=== PATIENT | male | born 1955 | race Caucasian/White ===

== ENCOUNTER 2018-10-17 18:47 | Inpatient (IN) | payer OTHER ==
[2018-10-17] MEDS: SOD CHLORIDE 0.9% 1,000 ML IV (20:00)
[2018-10-17 21:08] LABS: ADD MAN DIFF? NO
[2018-10-17 21:09] LABS: WHITE BLOOD COUNT 9.7 10^3/ul (4.8-10.8)
[2018-10-17 21:09] LABS: ABNORMAL IP MESSAGE 1; BASOPHILS % 0.1 % (0.0-2.0); HEMATOCRIT 34.8 % (42.0-52.0); HEMOGLOBIN 11.7 g/dl (14.0-18.0); LYMPHOCYTES # 0.7 10^3/ul (0.8-2.9); LYMPHOCYTES % 7.3 % (15.0-51.0); MEAN CORPUSCULAR HEMOGLOBIN 34.3 pg (29.0-33.0); MEAN CORPUSCULAR HGB CONC 33.6 g/dl (32.0-37.0); MEAN CORPUSCULAR VOLUME 102.1 fl (82.0-101.0); MEAN PLATELET VOLUME 9.8 fl (7.4-10.4); MONOCYTE # 1.4 10^3/ul (0.3-0.9); MONOCYTES % 14.1 % (0.0-11.0); NEUTROPHIL # 7.6 10^3/ul (1.6-7.5); NEUTROPHILS % 78.2 % (39.0-77.0); PLATELET COUNT 75 10^3/UL (140-415); POSITIVE DIFF @See below; RED BLOOD COUNT 3.41 10^6/ul (4.70-6.10); RED CELL DISTRIBUTION WIDTH 11.9 % (11.5-14.5)
[2018-10-17 21:32] LABS: ALANINE AMINOTRANSFERASE 13 IU/L (13-69); ALBUMIN 4.3 g/dl (3.3-4.9); ALBUMIN/GLOBULIN RATIO 1.16; ALKALINE PHOSPHATASE 60 IU/L (42-121); ANION GAP 13 (5-13); ASPARTATE AMINO TRANSFERASE 29 IU/L (15-46); BILIRUBIN,INDIRECT 0.4 mg/dl (0-1.1); BILIRUBIN,TOTAL 0.4 mg/dl (0.2-1.3); BLOOD UREA NITROGEN 25 mg/dl (7-20); CALCIUM 9.8 mg/dl (8.4-10.2); CARBON DIOXIDE 25 mmol/L (21-31); CHLORIDE 102 mmol/L (97-110); CREATININE 1.09 mg/dl (0.61-1.24); Estimated GFR > 60 mL/min (>60); GLUCOSE 162 mg/dl (70-220); POTASSIUM 4.5 mmol/L (3.5-5.1); SODIUM 140 mmol/L (135-144)
[2018-10-17 21:42] LABS: AMPHETAMINE/METHAMPHETAMINE Negative (NEGATIVE); BARBITURATES Negative (NEGATIVE); BENZODIAZEPINES Negative (NEGATIVE); CANNABINOIDS Negative (NEGATIVE); COCAINE Negative (NEGATIVE); OPIATES Negative (NEGATIVE)
[2018-10-17] MEDS: ONDANSETRON 4 MG INJ IV (22:02)
[2018-10-17] MEDS: morphine 4 MG/ML VIAL IV (22:03)
[2018-10-17] MEDS: HEPARIN 5,000 UNIT/1 ML VIAL SC (22:30)
[2018-10-17] MEDS ORDERED: ACETAMINOPHEN 325 MG TAB PO (22:30)
[2018-10-17] MEDS ORDERED: NACL 0.9% 3 ML SYG IV (22:30)
[2018-10-17] MEDS ORDERED: DOCUSATE SODIUM 100 MG CAP PO (22:30)
[2018-10-17 23:46] LABS: INR 1.07; PT RATIO 1.1
[2018-10-17 23:47] LABS: PARTIAL THROMBOPLASTIN TIME 27.9 Sec (23.0-35.0)
[2018-10-17 23:54] LABS: CREATINE KINASE 73 IU/L (23-200)
[2018-10-18 00:07] LABS: CK INDEX 1.7; CK-MB 1.22 ng/ml (0.0-2.4); TROPONIN-I < 0.012 ng/ml (0.000-0.120)
[2018-10-18 04:58] LABS: ADD MAN DIFF? NO
[2018-10-18 05:07] LABS: WHITE BLOOD COUNT 8.5 10^3/ul (4.8-10.8)
[2018-10-18 05:07] LABS: ABNORMAL IP MESSAGE 1; BASOPHILS % 0.1 % (0.0-2.0); HEMATOCRIT 35.3 % (42.0-52.0); HEMOGLOBIN 11.8 g/dl (14.0-18.0); LYMPHOCYTES # 0.9 10^3/ul (0.8-2.9); LYMPHOCYTES % 10.3 % (15.0-51.0); MEAN CORPUSCULAR HEMOGLOBIN 34.1 pg (29.0-33.0); MEAN CORPUSCULAR HGB CONC 33.4 g/dl (32.0-37.0); MEAN PLATELET VOLUME 10.4 fl (7.4-10.4); MONOCYTE # 1.8 10^3/ul (0.3-0.9); MONOCYTES % 20.9 % (0.0-11.0); NEUTROPHIL # 5.8 10^3/ul (1.6-7.5); NEUTROPHILS % 68.3 % (39.0-77.0); PLATELET COUNT 79 10^3/UL (140-415); POSITIVE DIFF @See below; RED BLOOD COUNT 3.46 10^6/ul (4.70-6.10); RED CELL DISTRIBUTION WIDTH 11.9 % (11.5-14.5)
[2018-10-18 05:20] LABS: CREATINE KINASE 67 IU/L (23-200)
[2018-10-18 05:29] LABS: ALANINE AMINOTRANSFERASE 25 IU/L (13-69); ALBUMIN 4.2 g/dl (3.3-4.9); ALKALINE PHOSPHATASE 51 IU/L (42-121); ANION GAP 15 (5-13); ASPARTATE AMINO TRANSFERASE 26 IU/L (15-46); BILIRUBIN,INDIRECT 0.8 mg/dl (0-1.1); BILIRUBIN,TOTAL 0.8 mg/dl (0.2-1.3); BLOOD UREA NITROGEN 23 mg/dl (7-20); CALCIUM 9.3 mg/dl (8.4-10.2); CARBON DIOXIDE 27 mmol/L (21-31); CHLORIDE 100 mmol/L (97-110); CREATININE 0.96 mg/dl (0.61-1.24); Estimated GFR > 60 mL/min (>60); GLUCOSE 124 mg/dl (70-220); MAGNESIUM 1.6 mg/dl (1.7-2.5); POTASSIUM 4.6 mmol/L (3.5-5.1); SODIUM 142 mmol/L (135-144); TOTAL PROTEIN 7.7 g/dl (6.1-8.1)
[2018-10-18 05:30] LABS: IRON 73 ug/dl (35-150)
[2018-10-18 05:33] LABS: CK INDEX 1.6; CK-MB 1.06 ng/ml (0.0-2.4); TROPONIN-I < 0.012 ng/ml (0.000-0.120)
[2018-10-18] MEDS: morphine 4 MG/ML VIAL IV ×2 (05:38→09:26)
[2018-10-18] MEDS: SOD CHLORIDE 0.9% 1,000 ML IV ×3 (05:38→20:00)
[2018-10-18 05:39] LABS: % IRON SATURATION 25 % SAT (22-52); TOTAL IRON BINDING CAPACITY 287 ug/dl (241-421)
[2018-10-18 05:55] LABS: HEPATITIS B SURFACE ANTIGEN NEGATIVE (NEGATIVE)
[2018-10-18 06:11] LABS: HEPATITIS B SURFACE ANTIBODY NEGATIVE (NEGATIVE)
[2018-10-18 06:12] LABS: HEPATITIS C VIRAL ANTIBODY NEGATIVE (NEGATIVE); HIV 1&2 ANTIBODY NEGATIVE (NEGATIVE)
[2018-10-18 06:30] LABS: FOLATE 9.7 ng/ml (2.8-20.0)
[2018-10-18 06:36] LABS: PHENYTOIN (DILANTIN) < 3.0 ug/ml (10.0-20.0)
[2018-10-18 06:43] LABS: HEMOGLOBIN A1C 5.2 % (0-5.9)
[2018-10-18] MEDS ORDERED: ROCURONIUM 50 MG INJ ×2 (07:00→16:25)
[2018-10-18] MEDS ORDERED: CEFAZOLIN 1 GM INJ (07:00)
[2018-10-18 10:53] LABS: ANTIBODY IDENTIFICATION 1 1
[2018-10-18] MEDS: MAGNESIUM SULFATE 2 GM/50 ML 50 ML IVPB (12:16)
[2018-10-18] MEDS: CEFAZOLIN 2 GM/50 ML (PMX) 50 ML IVPB ×2 (12:50→19:04)
[2018-10-18] MEDS ORDERED: ALBUTEROL 0.083% (NEB) 2.5 MG/3 ML AMP HHN (13:00)
[2018-10-18] MEDS ORDERED: DIPHENHYDRAMINE 50 MG INJ IV ×2 (13:00→18:30)
[2018-10-18] MEDS ORDERED: HYDROmorphONE 1 MG/5 ML IV SYRINGE IV ×3 (13:00→19:30)
[2018-10-18] MEDS ORDERED: ONDANSETRON 4 MG INJ IV (13:00)
[2018-10-18] MEDS ORDERED: METOCLOPRAMIDE 10 MG INJ IV (13:00)
[2018-10-18] MEDS ORDERED: FENTAnyl 50 MCG/ML VIAL IV ×2 (13:00)
[2018-10-18] MEDS ORDERED: MEPERIDINE 25 MG INJ IV (13:00)
[2018-10-18] MEDS ORDERED: FENTAnyl 50 MCG/ML VIAL (13:01)
[2018-10-18] MEDS ORDERED: morphine SULFATE/PF (10 MG/10 ML) INJ (13:02)
[2018-10-18] MEDS ORDERED: MIDAZOLAM 1 MG/ML 2 ML INJ (13:02)
[2018-10-18] MEDS: VANCOMYCIN HCL 1.5 GM in SOD CHLORIDE 0.9% 250 ML IVPB (13:30)
[2018-10-18] MEDS ORDERED: PHENYLephrine (100 MCG/ML) 5ML SYG (13:58)
[2018-10-18] MEDS: TRANEXAMIC ACID 1,000 MG in DEXTROSE 5% 100 ML IV ×3 (15:10→18:00)
[2018-10-18] MEDS ORDERED: LIDOCAINE 100 MG SYRINGE (16:25)
[2018-10-18] MEDS ORDERED: PROPOFOL 20 ML (16:25)
[2018-10-18] MEDS ORDERED: SUCCINYLCHOLINE CHLORIDE 100 MG/5 ML SYG IV (16:25)
[2018-10-18] MEDS ORDERED: NA PHOSPHATE/BIPHOS 133 ML ENEMA PR (18:30)
[2018-10-18] MEDS ORDERED: SENNA/DOCUSATE NA (8.6MG/50MG) TAB PO (18:30)
[2018-10-18] MEDS ORDERED: NACL 0.9% 3 ML SYG IV (18:30)
[2018-10-18] MEDS ORDERED: ACETAMINOPHEN 1000MG/100ML IV 100 ML IVPB (18:30)
[2018-10-18] MEDS ORDERED: NALOXONE (0.4 MG/ML) INJ IV (18:30)
[2018-10-18] MEDS ORDERED: BISACODYL 10 MG SUPP PR (18:30)
[2018-10-18] MEDS ORDERED: MAGNESIUM HYDROXIDE 30ML CUP PO (18:30)
[2018-10-18] MEDS ORDERED: oxyCODONE 5 MG TAB PO ×2 (18:30)
[2018-10-18] MEDS: HYDROmorphONE 1 MG/ML SYG IV (18:59)
[2018-10-18] MEDS: DOCUSATE SODIUM 100 MG CAP PO (19:06)
[2018-10-18] MEDS: HYDROmorphONE 1 MG/5 ML IV SYRINGE IV ×2 (19:18→19:27)
[2018-10-18] MEDS: ACETAMINOPHEN 500 MG TAB PO (20:00)
[2018-10-18] MEDS: GABAPENTIN 300 MG CAP PO (21:00)
[2018-10-18] MEDS: LACTATED RINGER'S 1,000 ML IV (22:34)
[2018-10-19] MEDS: HYDROmorphONE 1 MG/ML SYG IV ×4 (00:04→12:23)
[2018-10-19] MEDS: SOD CHLORIDE 0.9% 1,000 ML IV ×3 (02:00→21:43)
[2018-10-19] MEDS: CEFAZOLIN 2 GM/50 ML (PMX) 50 ML IVPB ×2 (02:40→09:28)
[2018-10-19] MEDS: PANTOPRAZOLE (EC) 40 MG TAB PO (05:06)
[2018-10-19] MEDS: VANCOMYCIN 1 GM (PMX) 250 ML IVPB ×2 (05:07→17:19)
[2018-10-19] MEDS: ACETAMINOPHEN 500 MG TAB PO ×3 (05:07→20:45)
[2018-10-19 05:18] LABS: ADD MAN DIFF? NO
[2018-10-19 05:28] LABS: ABNORMAL IP MESSAGE 1; HEMATOCRIT 29.6 % (42.0-52.0); HEMOGLOBIN 9.7 g/dl (14.0-18.0); LYMPHOCYTES # 0.4 10^3/ul (0.8-2.9); LYMPHOCYTES % 3.6 % (15.0-51.0); MEAN CORPUSCULAR HEMOGLOBIN 34.9 pg (29.0-33.0); MEAN CORPUSCULAR HGB CONC 32.8 g/dl (32.0-37.0); MEAN CORPUSCULAR VOLUME 106.5 fl (82.0-101.0); MEAN PLATELET VOLUME 10.6 fl (7.4-10.4); MONOCYTE # 1.7 10^3/ul (0.3-0.9); MONOCYTES % 17.4 % (0.0-11.0); NEUTROPHIL # 7.7 10^3/ul (1.6-7.5); NEUTROPHILS % 78.6 % (39.0-77.0); PLATELET COUNT 86 10^3/UL (140-415); POSITIVE DIFF @See below; RED BLOOD COUNT 2.78 10^6/ul (4.70-6.10); RED CELL DISTRIBUTION WIDTH 12.3 % (11.5-14.5)
[2018-10-19 05:28] LABS: WHITE BLOOD COUNT 9.8 10^3/ul (4.8-10.8)
[2018-10-19 05:43] LABS: INR 1.19; PROTIME 15.2 Sec (11.9-14.9); PT RATIO 1.2
[2018-10-19 05:45] LABS: ALANINE AMINOTRANSFERASE 13 IU/L (13-69); ALBUMIN 3.4 g/dl (3.3-4.9); ALBUMIN/GLOBULIN RATIO 1.03; ALKALINE PHOSPHATASE 44 IU/L (42-121); ANION GAP 15 (5-13); ASPARTATE AMINO TRANSFERASE 27 IU/L (15-46); BILIRUBIN,INDIRECT 0.4 mg/dl (0-1.1); BILIRUBIN,TOTAL 0.4 mg/dl (0.2-1.3); BLOOD UREA NITROGEN 23 mg/dl (7-20); CALCIUM 8.6 mg/dl (8.4-10.2); CARBON DIOXIDE 25 mmol/L (21-31); CHLORIDE 102 mmol/L (97-110); CREATININE 1.81 mg/dl (0.61-1.24); Estimated GFR 38 mL/min (>60); GLUCOSE 151 mg/dl (70-220); POTASSIUM 5.1 mmol/L (3.5-5.1); SODIUM 142 mmol/L (135-144); TOTAL PROTEIN 6.7 g/dl (6.1-8.1)
[2018-10-19 05:57] LABS: PHOSPHORUS 5.3 mg/dl (2.5-4.9)
[2018-10-19 05:57] LABS: MAGNESIUM 1.8 mg/dl (1.7-2.5)
[2018-10-19] MEDS: ONDANSETRON 4 MG INJ IV (09:26)
[2018-10-19] MEDS: DOCUSATE SODIUM 100 MG CAP PO ×2 (09:26→20:44)
[2018-10-19] MEDS: ENOXAPARIN 40 MG/0.4 ML SYG SC (09:27)
[2018-10-19 09:33] LABS: ADD UMIC YES; UR AMORPHOUS CRYSTAL FEW /HPF (NONE SEEN); UR ASCORBIC ACID NEGATIVE (NEGATIVE); UR BACTERIA FEW /HPF (NONE SEEN); UR BILIRUBIN (Dip) NEGATIVE (NEGATIVE); UR BLOOD (Dip) 2+ mg/dL (NEGATIVE); UR CLARITY CLOUDY (CLEAR); UR COLOR AMBER (YELLOW); UR GLUCOSE (Dip) NEGATIVE (NEGATIVE); UR KETONES (Dip) TRACE mg/dL (NEGATIVE); UR LEUKOCYTE ESTERASE (Dip) NEGATIVE Leu/ul (NEGATIVE); UR NITRITE (Dip) NEGATIVE (NEGATIVE); UR RBC 4 /HPF (0-5); UR SPECIFIC GRAVITY (Dip) 1.018 (1.003-1.030); UR TOTAL PROTEIN (Dip) 1+ mg/dl (NEGATIVE); UR UROBILINOGEN (Dip) NEGATIVE (NEGATIVE); UR WBC 7 /HPF (0-5)
[2018-10-19] MEDS: LACTATED RINGER'S 1,000 ML IV ×2 (09:34→19:58)
[2018-10-19 14:12] LABS: TROPONIN-I < 0.012 ng/ml (0.000-0.120)
[2018-10-19] MEDS: BISACODYL (EC) 5 MG TAB PO (16:30)
[2018-10-19] MEDS ORDERED: ONDANSETRON 4 MG INJ IV (18:30)
[2018-10-19] MEDS: GABAPENTIN 300 MG CAP PO (20:45)
[2018-10-20] MEDS: LACTATED RINGER'S 1,000 ML IV ×3 (03:58→19:38)
[2018-10-20 04:56] LABS: ADD MAN DIFF? NO
[2018-10-20 05:01] LABS: WHITE BLOOD COUNT 5.6 10^3/ul (4.8-10.8)
[2018-10-20 05:01] LABS: ABNORMAL IP MESSAGE 1; BASOPHILS % 0.2 % (0.0-2.0); HEMATOCRIT 21.8 % (42.0-52.0); HEMOGLOBIN 7.2 g/dl (14.0-18.0); LYMPHOCYTES # 0.5 10^3/ul (0.8-2.9); LYMPHOCYTES % 8.6 % (15.0-51.0); MEAN CORPUSCULAR HEMOGLOBIN 34.1 pg (29.0-33.0); MEAN CORPUSCULAR VOLUME 103.3 fl (82.0-101.0); MEAN PLATELET VOLUME 10.8 fl (7.4-10.4); MONOCYTES % 17.3 % (0.0-11.0); NEUTROPHIL # 4.1 10^3/ul (1.6-7.5); NEUTROPHILS % 73.5 % (39.0-77.0); PLATELET COUNT 59 10^3/UL (140-415); POSITIVE DIFF @See below; RED BLOOD COUNT 2.11 10^6/ul (4.70-6.10); RED CELL DISTRIBUTION WIDTH 11.9 % (11.5-14.5)
[2018-10-20] MEDS: PANTOPRAZOLE (EC) 40 MG TAB PO (05:14)
[2018-10-20] MEDS: ACETAMINOPHEN 500 MG TAB PO ×3 (05:14→21:00)
[2018-10-20 05:27] LABS: ANION GAP 11 (5-13); BLOOD UREA NITROGEN 27 mg/dl (7-20); CALCIUM 8.6 mg/dl (8.4-10.2); CARBON DIOXIDE 28 mmol/L (21-31); CHLORIDE 97 mmol/L (97-110); CREATININE 1.22 mg/dl (0.61-1.24); Estimated GFR 60 mL/min (>60); GLUCOSE 127 mg/dl (70-220); POTASSIUM 4.6 mmol/L (3.5-5.1); SODIUM 136 mmol/L (135-144)
[2018-10-20 05:30] LABS: INR 1.22; PROTIME 15.5 Sec (11.9-14.9); PT RATIO 1.2
[2018-10-20] MEDS: SOD CHLORIDE 0.9% 1,000 ML IV (06:06)
[2018-10-20] MEDS: DOCUSATE SODIUM 100 MG CAP PO ×2 (08:43→21:00)
[2018-10-20 08:47] LABS: HEMATOCRIT 20.8 % (42.0-52.0)
[2018-10-20] MEDS: ONDANSETRON 4 MG INJ IV (08:47)
[2018-10-20] MEDS: oxyCODONE 5 MG TAB PO (08:47)
[2018-10-20] MEDS: ENOXAPARIN 40 MG/0.4 ML SYG SC (09:00)
[2018-10-20 14:15] LABS: ADD MAN DIFF? NO
[2018-10-20 14:17] LABS: WHITE BLOOD COUNT 5.3 10^3/ul (4.8-10.8)
[2018-10-20 14:17] LABS: ABNORMAL IP MESSAGE 1; BASOPHILS % 0.2 % (0.0-2.0); EOSINOPHILS % 0.4 % (0.0-7.0); HEMATOCRIT 21.7 % (42.0-52.0); HEMOGLOBIN 7.2 g/dl (14.0-18.0); LYMPHOCYTES # 0.6 10^3/ul (0.8-2.9); LYMPHOCYTES % 11.4 % (15.0-51.0); MEAN CORPUSCULAR HEMOGLOBIN 33.8 pg (29.0-33.0); MEAN CORPUSCULAR HGB CONC 33.2 g/dl (32.0-37.0); MEAN CORPUSCULAR VOLUME 101.9 fl (82.0-101.0); MEAN PLATELET VOLUME 9.6 fl (7.4-10.4); MONOCYTE # 0.9 10^3/ul (0.3-0.9); NEUTROPHIL # 3.7 10^3/ul (1.6-7.5); NEUTROPHILS % 69.6 % (39.0-77.0); PLATELET COUNT 61 10^3/UL (140-415); POSITIVE DIFF @See below; RED BLOOD COUNT 2.13 10^6/ul (4.70-6.10); RED CELL DISTRIBUTION WIDTH 12.1 % (11.5-14.5)
[2018-10-20 14:25] LABS: MONOCYTES % 17.8 % (0.0-11.0)
[2018-10-20 15:02] LABS: BAND NEUTROPHILS #M 0.3 10^3/ul (0.0-0.6); BAND NEUTROPHILS % (M) 7 % (0-4); LYMPHOCYTES #M 0.5 10^3/ul (0.8-2.9); LYMPHOCYTES % (M) 11 % (15-51); MONOCYTE #M 0.7 10^3/ul (0.3-0.9); MONOCYTES % (M) 15 % (0-11); MYELOCYTES % (M) 1 % (0-0); PLATELET ESTIMATE DECREASED; POLYCHROMASIA 3+ (0-0); REACTIVE LYMPHOCYTES #M 0.1 10^3/ul (0.0-0.0); REACTIVE LYMPHOCYTES% (M) 2 % (0-0); SEG NEUT #M 3.4 10^3/ul (1.6-7.5); SEGMENTED NEUTROPHILS (M) % 64 % (39-77); SMUDGE%M 8 % (0-0)
[2018-10-20] MEDS: GABAPENTIN 300 MG CAP PO (21:00)
[2018-10-21] MEDS: LACTATED RINGER'S 1,000 ML IV ×3 (03:58→19:58)
[2018-10-21] MEDS: PANTOPRAZOLE (EC) 40 MG TAB PO (05:06)
[2018-10-21] MEDS: ACETAMINOPHEN 500 MG TAB PO ×3 (05:06→20:30)
[2018-10-21 05:35] LABS: ADD MAN DIFF? NO
[2018-10-21 05:43] LABS: WHITE BLOOD COUNT 5.4 10^3/ul (4.8-10.8)
[2018-10-21 05:43] LABS: ABNORMAL IP MESSAGE 1; EOSINOPHILS % 0.7 % (0.0-7.0); HEMATOCRIT 23.3 % (42.0-52.0); HEMOGLOBIN 7.6 g/dl (14.0-18.0); LYMPHOCYTES # 0.9 10^3/ul (0.8-2.9); LYMPHOCYTES % 17.5 % (15.0-51.0); MEAN CORPUSCULAR HEMOGLOBIN 33.9 pg (29.0-33.0); MEAN CORPUSCULAR HGB CONC 32.6 g/dl (32.0-37.0); MEAN PLATELET VOLUME 11.1 fl (7.4-10.4); MONOCYTES % 19.4 % (0.0-11.0); NEUTROPHIL # 3.3 10^3/ul (1.6-7.5); POSITIVE DIFF @See below; RED BLOOD COUNT 2.24 10^6/ul (4.70-6.10)
[2018-10-21 05:57] LABS: INR 1.01; PROTIME 13.4 Sec (11.9-14.9)
[2018-10-21 06:12] LABS: PLATELET COUNT 82 10^3/UL (140-415)
[2018-10-21 06:18] LABS: ANION GAP 9 (5-13); BLOOD UREA NITROGEN 19 mg/dl (7-20); CALCIUM 9.2 mg/dl (8.4-10.2); CARBON DIOXIDE 30 mmol/L (21-31); CHLORIDE 101 mmol/L (97-110); CREATININE 0.94 mg/dl (0.61-1.24); Estimated GFR > 60 mL/min (>60); GLUCOSE 103 mg/dl (70-220); SODIUM 140 mmol/L (135-144)
[2018-10-21] MEDS: DOCUSATE SODIUM 100 MG CAP PO ×2 (08:39→20:30)
[2018-10-21] MEDS: oxyCODONE 5 MG TAB PO (09:31)
[2018-10-21] MEDS: GABAPENTIN 300 MG CAP PO (20:29)
[2018-10-22] MEDS: LACTATED RINGER'S 1,000 ML IV (03:58)
[2018-10-22 05:13] LABS: ADD MAN DIFF? NO
[2018-10-22 05:19] LABS: WHITE BLOOD COUNT 5.5 10^3/ul (4.8-10.8)
[2018-10-22 05:19] LABS: BASOPHILS % 0.2 % (0.0-2.0); EOSINOPHILS # 0.1 10^3/ul (0.0-0.5); EOSINOPHILS % 0.9 % (0.0-7.0); HEMATOCRIT 20.9 % (42.0-52.0); LYMPHOCYTES % 17.4 % (15.0-51.0); MEAN CORPUSCULAR HEMOGLOBIN 34.1 pg (29.0-33.0); MEAN CORPUSCULAR HGB CONC 33.5 g/dl (32.0-37.0); MONOCYTES % 18.5 % (0.0-11.0); NEUTROPHIL # 3.5 10^3/ul (1.6-7.5); NEUTROPHILS % 62.5 % (39.0-77.0); PLATELET COUNT 103 10^3/UL (140-415); RED BLOOD COUNT 2.05 10^6/ul (4.70-6.10); RED CELL DISTRIBUTION WIDTH 11.9 % (11.5-14.5)
[2018-10-22] MEDS: ACETAMINOPHEN 500 MG TAB PO ×3 (05:27→22:23)
[2018-10-22] MEDS: PANTOPRAZOLE (EC) 40 MG TAB PO (05:27)
[2018-10-22] MEDS: LEVOFLOXACIN 250 MG TAB PO (05:27)
[2018-10-22 05:41] LABS: ANION GAP 8 (5-13); BLOOD UREA NITROGEN 20 mg/dl (7-20); CARBON DIOXIDE 29 mmol/L (21-31); CHLORIDE 101 mmol/L (97-110); Estimated GFR > 60 mL/min (>60); GLUCOSE 106 mg/dl (70-220); INR 0.95; PROTIME 12.8 Sec (11.9-14.9); SODIUM 138 mmol/L (135-144)
[2018-10-22] MEDS: oxyCODONE 5 MG TAB PO (11:22)
[2018-10-22] MEDS: SOD FERRIC GLUC COMPLX 125 MG in SOD CHLORIDE 0.9% 100 ML IVPB (12:58)
[2018-10-22] MEDS: GABAPENTIN 300 MG CAP PO (20:33)
[2018-10-22] MEDS: QUETIAPINE 100 MG TAB PO (20:33)
[2018-10-22 21:19] LABS: IMMEDIATE SPIN CROSSMATCH 1 1
[2018-10-22] MEDS: SOD CHLORIDE 0.9% 250 ML IV* (22:00)
[2018-10-23 04:59] LABS: ADD MAN DIFF? NO
[2018-10-23 05:07] LABS: WHITE BLOOD COUNT 5.2 10^3/ul (4.8-10.8)
[2018-10-23 05:07] LABS: BASOPHILS % 0.2 % (0.0-2.0); EOSINOPHILS # 0.1 10^3/ul (0.0-0.5); EOSINOPHILS % 1.3 % (0.0-7.0); HEMATOCRIT 24.3 % (42.0-52.0); HEMOGLOBIN 8.1 g/dl (14.0-18.0); LYMPHOCYTES # 1.1 10^3/ul (0.8-2.9); MEAN CORPUSCULAR HEMOGLOBIN 33.3 pg (29.0-33.0); MEAN CORPUSCULAR HGB CONC 33.3 g/dl (32.0-37.0); MEAN PLATELET VOLUME 9.3 fl (7.4-10.4); MONOCYTE # 1.2 10^3/ul (0.3-0.9); MONOCYTES % 23.1 % (0.0-11.0); NEUTROPHIL # 2.7 10^3/ul (1.6-7.5); NEUTROPHILS % 52.4 % (39.0-77.0); PLATELET COUNT 120 10^3/UL (140-415); RED BLOOD COUNT 2.43 10^6/ul (4.70-6.10); RED CELL DISTRIBUTION WIDTH 13.3 % (11.5-14.5)
[2018-10-23 05:30] LABS: ANION GAP 11 (5-13); BLOOD UREA NITROGEN 17 mg/dl (7-20); CALCIUM 9.1 mg/dl (8.4-10.2); CARBON DIOXIDE 25 mmol/L (21-31); CHLORIDE 106 mmol/L (97-110); CREATININE 0.95 mg/dl (0.61-1.24); Estimated GFR > 60 mL/min (>60); GLUCOSE 114 mg/dl (70-220); POTASSIUM 3.8 mmol/L (3.5-5.1); SODIUM 142 mmol/L (135-144)
[2018-10-23] MEDS: PANTOPRAZOLE (EC) 40 MG TAB PO (05:55)
[2018-10-23] MEDS: LEVOFLOXACIN 250 MG TAB PO (05:55)
[2018-10-23] MEDS: ACETAMINOPHEN 500 MG TAB PO ×3 (05:56→21:27)
[2018-10-23 06:06] LABS: PROTIME 13.3 Sec (11.9-14.9)
[2018-10-23] MEDS: SENNA TAB PO (08:48)
[2018-10-23] MEDS: ESCITALOPRAM 10 MG TAB PO (08:48)
[2018-10-23] MEDS: SOD FERRIC GLUC COMPLX 125 MG in SOD CHLORIDE 0.9% 100 ML IVPB (14:18)
[2018-10-23] MEDS: QUETIAPINE 100 MG TAB PO (20:11)
[2018-10-23] MEDS: GABAPENTIN 300 MG CAP PO (20:11)
[2018-10-23] MEDS: ENOXAPARIN 40 MG/0.4 ML SYG SC (20:23)
== END 2018-10-23 21:50 | DRG 470 ==
LOC: MS1 21:21 → E/R 18:47
PROC: 0SRS019 Replacement of Left Hip Joint, Femoral Surface with Metal Synthetic Substitute, Cemented, Open Approach (ICD-10-PCS; principal; 2018-10-18 13:30)
DX: S72.012A Unspecified intracapsular fracture of left femur, initial encounter for closed fracture (principal); N17.9 Acute kidney failure, unspecified; N39.0 Urinary tract infection, site not specified; S72.142P Displaced intertrochanteric fracture of left femur, subsequent encounter for closed fracture with malunion; D62 Acute posthemorrhagic anemia; D69.59 Other secondary thrombocytopenia; F31.9 Bipolar disorder, unspecified; I10 Essential (primary) hypertension; W18.30XA Fall on same level, unspecified, initial encounter
CPT/HCPCS: 36430; 70450; 71045; 72100; 72170; 73510; 73530; 80048; 80053; 80185; 80307; 81001; 82550; 82553; 82607; 82728; 82746; 83036; 83540; 83735; 84100; 84443; 84484; 85014; 85018; 85025; 85610; 85730; 86644; 86703; 86706; 86803; 86850; 86870; 86900; 86901; 86902; 86920; 87086; 87340; 88305; 88311; 93005; 97110; 97116; 97162; 97165; 97530; 97535; 99285-25

== ENCOUNTER → 2018-11-06 | Outpatient (CLI) | payer OTHER | END | disposition home or self-care (01) | LOC: HKI 14:18 | DX: Z47.1 Aftercare following joint replacement surgery (principal); Z96.642 Presence of left artificial hip joint ==

== ENCOUNTER → 2018-12-07 | Outpatient (CLI) | payer OTHER | END | disposition home or self-care (01) | LOC: HKI 13:52 | DX: M25.552 Pain in left hip (principal); Z96.642 Presence of left artificial hip joint | CPT/HCPCS: 73502 ==